=== PATIENT | male | born 1995 | race African-American/Black ===

== ENCOUNTER 2020-01-07 10:15 | Emergency (ER) | payer MEDICAID ==
[~2020-01-07] VITALS: Ht 188 cm; Wt 104.5 kg
[2020-01-07 10:24] VITALS: BP 119/69
[2020-01-07] MEDS ORDERED: BENZOCAINE 20% 11.9 GM GEL TP ONE (11:45)
[2020-01-07] MEDS ORDERED: KETOROLAC TROMETHAMINE 30 MG/ML VIAL IM ONE (11:45)
== END 2020-01-07 13:12 | disposition left against medical advice (07) ==
LOC: EMS 10:19
DX: K08.89 Other specified disorders of teeth and supporting structures (principal); F17.210 Nicotine dependence, cigarettes, uncomplicated
CPT/HCPCS: 99406

== ENCOUNTER 2020-02-01 00:04 | Emergency (ER) | payer MEDICAID ==
[~2020-02-01] VITALS: Ht 188 cm; Wt 90.9 kg
[2020-02-01 00:46] VITALS: BP 135/64
== END 2020-02-01 01:18 | disposition home or self-care (01) ==
LOC: EMS 00:04
DX: K08.89 Other specified disorders of teeth and supporting structures (principal); F17.210 Nicotine dependence, cigarettes, uncomplicated
CPT/HCPCS: 99406